=== PATIENT | male | born 1975 | race Caucasian/White ===

== ENCOUNTER 2022-08-15 10:20 | Outpatient (CLI) | payer BC, SELFPAY ==
--- NOTE | 2022-08-15 10:36 | XR_ITS ---
WS: [id number] XR KUB [id number] REASON FOR EXAM: Kidney stone FINDINGS: No urinary tract calculi are identified. No other abnormality of the abdomen or pelvis is identified. XR/XR KUB [id number] IMPRESSION: No urinary tract calculi identified.
== END 2022-08-15 10:21 | disposition home or self-care (01) ==
PROVIDERS: PCP Family Medicine; Visit Provider Nurse Practitioner Family
DX: N20.0 Calculus of kidney (principal)
CPT/HCPCS: 74018; 81000

== ENCOUNTER 2023-02-04 12:36 | Outpatient (CLI) | payer BC, SELFPAY ==
[2023-02-04 13:46] LABS: Albumin Level 4.4 g/dL (3.5-5.2); Blood Urea Nitrogen 23 mg/dL (6-20); Calcium 9.1 mg/dL (8.5-10.5); Carbon Dioxide 25 mmol/L (22-29); Chloride 101 mmol/L (98-107); Glomerular Filtration Rate 59.2 mL/min (90-130); Glucose 99 mg/dL (65-115); Phosphorus 3.4 mg/dL (2.5-4.5); Sodium 139 mmol/L (136-145)
[2023-02-04 13:50] LABS: Calcium 9.2 mg/dL (8.5-10.5)
[2023-02-04 13:58] LABS: Parathyroid Hormone 23.4 pg/mL (15-65)
[2023-02-04 14:01] LABS: 25 Hydroxy Vitamin D 90 ng/mL (30-100)
[2023-02-05 11:27] LABS: Creatinine Urine, Random 88 mg/dL (39-259); Microalbum Creatinine Ratio Ur 11 mg/dL (0-20); Microalbumin Random Urine 1 ug/dL (0-20)
== END 2023-02-04 12:37 | disposition home or self-care (01) ==
LOC: LAB 12:43
PROVIDERS: PCP Family Medicine; Visit Provider Internal Medicine Nephrology
DX: N18.2 Chronic kidney disease, stage 2 (mild) (principal); Q61.3 Polycystic kidney, unspecified
CPT/HCPCS: 36415; 80069; 82044; 82306; 82310; 83970

== ENCOUNTER 2023-02-16 10:39 | Emergency (ER) | payer BC, SELFPAY ==
--- NOTE | 2023-02-16 10:53 | ED_ITS ---
HPI - Trauma General: Chief Complaint: Wound/Laceration Stated Complaint: laceration right side of face Time Seen by Provider: 02/16/23 10:48 History of Present Illness: 47-year-old male presents emergency depa rtment stating that he has a laceration to the right upper portion of his eyebrow. He states that he was working at his home and propped up a metal farm implement when it accidentally fell striking him in the right forehead/right lateral eyebrow area. He states he did not lose consciousness but immediately put pressure on it to control the bleeding. He does have a 3 cm laceration to the right upper lateral supraorbital region. He denies change in vision, neck pain dizziness or lightheaded feeling. Review of Systems General: Reports: 10 or more systems reviewed and unremarkable except in HPI and below Skin/Breast: Reports: other (Laceration right upper eyebrow) Physical Exam Narrative: EXAM NARRATIVE: Constitutional: the patient appears well nourished and with normal development. Vital signs reviewed as documented. HENMT: Normocephalic, atraumatic. Extermal ears with normal appearance without drainage. Nose without drainage, normal appearance. Mucus membranes moist. Neck is supple, No jugular venous distension, trachea is midline, no appreciable carotid bruits. No lymphadenopathy. No meningeal signs. Flexion, extension and lateral rotation is without pain. Eyes: Pupils are equal, round, reactive to light and accommodation. No scleral icterus. Extra-ocular movement are intact. Thorax is symmetrical and with equal rise and fall with respirations. Resp: Lungs are clear to auscultation. No wheezes, rales, crackles or ronchi at present. Cardio: Regular rate and rhythm. Positive S1, S2. No appreciable murmurs, rubs or gallops. GI: Abdominal exam reveals normal bowel sounds to all quadrants. No organo megaly. No obvious palpable masses noted. No hepatomegally appreciated. Soft, nontender to palpation. Extremity: Extremities are non-edematous and both femoral and pedal pulses are 2+ and equal bilaterally. Moves all extremities well, sensation in all extremities. Neuro: Alert and oriented x4, person, place, time and situation. Cranial nerves II through XII are grossly intact, there is no focal neurological deficits that I can appreciate at present. Motor strength in the upper and lower extremities are equal and bilateral 5/5. Psych: Cooperative, calm, normal thought process, appropriate judgment. Skin: No lesions, rashes. 3 cm laceration to the right lateral supraorbital region. Back: Symmetrical, no obvious deformity, No CVA tenderness Course ED course: Laceration Repair: The patient verbally consents to a wound repair. A time out was performed. Side and sight are verified. Patient identification is verified. The wound is anesthetized with- 5ml of 1% Lidocaine without epinephrine It is then copiously irrigated with sterile saline and cleansed with saline and betadine mixture. The wound measures [-3 cm-] in length by [-0.25 mm-] in depth. It is approximated using simple interrupted sutures with [-4-0-] Ethilon. Total number [-3-]. Good approximation is achieved. Hemostasis is maintained. It is dressed with antibiotic ointment and a bulky dressing. Extraocular movements were intact in all verduzco before and after local anesthesia was utilized. Follow-up instructions were provided to the patient. The patient was educated on the signs of infection and return precautions. The patient was advised to follow-up with a medical provider in 7-10 days to have the wound evaluated for possible suture removal. Vital Signs: Vital signs: Vital Signs Pulse Rate 81 02/16/23 11:01 Respiratory Rate 15 02/16/23 11:01 Blood Pressure 142/98 02/16/23 11:01 Pulse Oximetry 97 02/16/23 11:01 Oxygen Delivery Me thod Room Air 02/16/23 11:01 MDM - Trauma Medical Decision Making Physical exam completed and documented laceration repair as noted. Anticipatory guidance was provided to the patient. No radiology studies performed this visit Discharge Plan Discharge Patient Disposition: Home Clinical Impression: Laceration Condition: Stable Prescriptions: No Action tamsulosin [Flomax] 0.4 mg capsule 0.4 mg PO DAILY Qty: 20 0RF Discharge Orders: Discharge ED (Routine); Ordered 02/16/23 Ordered By: Jovon Smith Referrals: Hood Alvarado MD [Primary Care Provider] - Discharge Diet: Advance as tolerated Discharge Activity: Resume usual activity Patient Instructions: Opioid Safety, Pain Management Activity Restrictions/Additional Instructions: Activity Restrictions/Additional Instructions: Thank you for choosing [facility] for your healthcare needs today. Please realize that you were seen in the Emergency Department and that we are providing you with an emergency medical screening exam and this may not be a complete and all inclusive of all the testing and or medical work-up that you may need to determine your ailment or severity of your illness. It is very important that you follow-up as instructed with your Primary care provider or Specialist for additional evaluation and to discuss your medical treatment plan. You may return to the Emergency Department should you have concerns or if your condition changes or worsens in any way. Coding Level of Care Code ED Water Resource Project Manager for Ting Crockett
[2023-02-16 11:01] VITALS: BP 142/98; PULSE 81; RESP 15; O2SAT 97
[2023-02-16] MEDS: lidocaine 1% INJ 10 mL (per mL) INJECTION (11:52)
[2023-02-16] MEDS: neomycin-poly-bacitracin oint 28 gm 1 APPLIC TOPICAL (11:52)
== END 2023-02-16 12:20 | disposition home or self-care (01) ==
PROVIDERS: Emergency Provider Internal Medicine; PCP Family Medicine
DX: S01.111A Laceration without foreign body of right eyelid and periocular area, initial encounter (principal); W20.8XXA Other cause of strike by thrown, projected or falling object, initial encounter
CPT/HCPCS: 12013; 99283

== ENCOUNTER 2023-03-08 13:48 | Outpatient (CLI) | payer BC, SELFPAY ==
[2023-03-08 14:59] LABS: Blood Urea Nitrogen 31 mg/dL (6-20); Calcium 9.2 mg/dL (8.5-10.5); Carbon Dioxide 26 mmol/L (22-29); Chloride 104 mmol/L (98-107); Glomerular Filtration Rate 64.9 mL/min (90-130); Glucose 139 mg/dL (65-115); Osmolality Calculated 299 mOsm/kg (285-295); Sodium 140 mmol/L (136-145)
== END 2023-03-08 13:49 | disposition home or self-care (01) ==
LOC: LAB 13:50
PROVIDERS: PCP Family Medicine; Visit Provider Internal Medicine Nephrology
DX: N18.2 Chronic kidney disease, stage 2 (mild) (principal)
CPT/HCPCS: 36415; 80048

== ENCOUNTER 2023-08-05 11:11 | Outpatient (CLI) | payer BC, SELFPAY ==
[2023-08-05 11:47] LABS: Basophils # 0.1 10^3/uL (0.0-0.1); Basophils % 0.9 %; Eosinophils # 0.2 10^3/uL (0.0-0.8); Hematocrit 42.9 % (37-53); Lymphocytes # 2.5 10^3/uL (0.8-4.8); Lymphocytes % 29.3 %; Mean Corpuscular Hemoglobin 28.5 pg (27-33); Mean Corpuscular Volume 83.8 fl (82-101); Mean Platelet Volume 9.2 fL (7.4-10.4); Monocytes # 0.6 10^3/uL (0.2-0.9); Neutrophils # 5.21 10^3/uL (1.8-7.7); Neutrophils % 60.6 %; Nucleated Red Blood Cells % 0 %; Platelet Count 303 10^3/cmm (157-399); Red Blood Count 5.12 10^6/uL (3.85-5.65)
[2023-08-05 12:04] LABS: Creatinine Urine, Random 62 mg/dL (39-259); Microalbum Creatinine Ratio Ur 16 mg/dL (0-20); Microalbumin Random Urine 1 ug/dL (0-20)
[2023-08-05 12:10] LABS: Albumin Level 4.4 g/dL (3.5-5.2); Blood Urea Nitrogen 22 mg/dL (6-20); Calcium 8.7 mg/dL (8.5-10.5); Carbon Dioxide 28 mmol/L (22-29); Chloride 101 mmol/L (98-107); Glomerular Filtration Rate 64.9 mL/min (90-130); Glucose 102 mg/dL (65-115); Phosphorus 3.1 mg/dL (2.5-4.5); Sodium 137 mmol/L (136-145)
[2023-08-05 12:12] LABS: Calcium 9.1 mg/dL (8.5-10.5)
== END 2023-08-05 11:12 | disposition home or self-care (01) ==
LOC: LAB 11:12
PROVIDERS: PCP Family Medicine; Visit Provider Internal Medicine Nephrology
DX: N18.2 Chronic kidney disease, stage 2 (mild) (principal); Q61.3 Polycystic kidney, unspecified
CPT/HCPCS: 36415; 80069; 82044; 82310; 83970; 85025

== ENCOUNTER 2024-08-10 11:07 | Outpatient (CLI) | payer BC, SELFPAY ==
[2024-08-10 12:05] LABS: Basophils # 0.1 10^3/uL (0.0-0.1); Basophils % 0.9 %; Eosinophils # 0.2 10^3/uL (0.0-0.8); Eosinophils % 2.4 %; Hematocrit 40.6 % (37-53); Lymphocytes # 2.5 10^3/uL (0.8-4.8); Lymphocytes % 28.4 %; Mean Corpuscular HGB Conc 33.7 g/dL (30-55); Mean Corpuscular Hemoglobin 28.3 pg (27-33); Mean Corpuscular Volume 83.9 fl (82-101); Mean Platelet Volume 9.1 fL (7.4-10.4); Monocytes # 0.7 10^3/uL (0.2-0.9); Monocytes % 7.8 %; Neutrophils # 5.22 10^3/uL (1.8-7.7); Neutrophils % 60.2 %; Nucleated Red Blood Cells % 0 %; Platelet Count 292 10^3/cmm (157-399); Red Blood Count 4.84 10^6/uL (3.85-5.65); White Blood Count 8.69 10^3/uL (3.29-11.43)
[2024-08-10 12:16] LABS: Creatinine Urine, Random 91 mg/dL (39-259); Microalbum Creatinine Ratio Ur 11 mg/dL (0-20); Microalbumin Random Urine 1 ug/dL (0-20)
[2024-08-10 12:28] LABS: Calcium 8.9 mg/dL (8.5-10.5)
[2024-08-10 12:30] LABS: Albumin Level 4.1 g/dL (3.5-5.2); Anion Gap 16.8 (5-19); Blood Urea Nitrogen 27 mg/dL (6-20); Calcium 8.7 mg/dL (8.5-10.5); Carbon Dioxide 22 mmol/L (22-29); Chloride 103 mmol/L (98-107); Glomerular Filtration Rate 64.4 mL/min (90-130); Glucose 89 mg/dL (65-115); Phosphorus 2.9 mg/dL (2.5-4.5); Potassium 3.8 mmol/L (3.5-5.1); Sodium 138 mmol/L (136-145)
[2024-08-10 12:33] LABS: Parathyroid Hormone 24.2 pg/mL (15-65)
[2024-08-10 12:45] LABS: 25 Hydroxy Vitamin D 88 ng/mL (30-100)
== END 2024-08-10 11:08 | disposition home or self-care (01) ==
PROVIDERS: PCP Family Medicine; Visit Provider Internal Medicine Nephrology
DX: N18.2 Chronic kidney disease, stage 2 (mild) (principal)
CPT/HCPCS: 36415; 80069; 82044; 82306; 82310; 83970; 85025